=== PATIENT | female | born 1950 | race Caucasian/White ===

== ENCOUNTER 2023-01-24 08:32 | Day surgery (SDC) | payer MEDICARE, OTHER ==
[~2023-01-24] VITALS: Ht 167.6 cm; Wt 66.4 kg
[~2023-01-24 08:32] MED LIST: AMLO10TA PO; GUAI600T45 PO; MELA3TAB39 PO; ROSU20TA2 PO; SPIR50TA5 PO; ZOLP10TA PO
[2023-01-24 09:00] VITALS: BP 129/68; PULSE 88; RESP 14; TEMP 97.8; O2SAT 97
[2023-01-24] MEDS ORDERED: albumin 25% 100mL bottle x 1 IV PRN (09:05)
[2023-01-24 10:30] VITALS: BP 135/81; PULSE 92; RESP 14; O2SAT 96
[2023-01-24 10:45] VITALS: BP 134/68; PULSE 91; RESP 14; O2SAT 93
[2023-01-24 11:00] VITALS: BP 123/68; PULSE 81; RESP 14; O2SAT 94
[2023-01-24 11:05] VITALS: BP 128/68; PULSE 81; RESP 14; O2SAT 95
== END 2023-01-24 11:15 | disposition home or self-care (01) ==
LOC: SSTAY O 08:32
PROVIDERS: ATTEND Radiology Vascular & Interventional Radiology
DX: R18.8 Other ascites (principal); R14.0 Abdominal distension (gaseous); I10 Essential (primary) hypertension; I25.2 Old myocardial infarction; Z98.51 Tubal ligation status; Z98.890 Other specified postprocedural states; Z86.19 Personal history of other infectious and parasitic diseases; Z88.1 Allergy status to other antibiotic agents; Z79.899 Other long term (current) drug therapy
CPT/HCPCS: 49083; C1729; A6258; A6449

== ENCOUNTER 2023-02-04 08:24 | Day surgery (SDC) | payer MEDICARE, OTHER ==
[~2023-02-04] VITALS: Ht 167.6 cm; Wt 65.6 kg
[2023-02-04 08:50] VITALS: BP 150/94; PULSE 99; RESP 16; TEMP 97.6; O2SAT 97
== END 2023-02-04 09:55 | disposition home or self-care (01) ==
LOC: SSTAY O 08:24
PROVIDERS: ATTEND Radiology Vascular & Interventional Radiology
DX: J90 Pleural effusion, not elsewhere classified (principal); Z53.8 Procedure and treatment not carried out for other reasons; I10 Essential (primary) hypertension; E78.00 Pure hypercholesterolemia, unspecified; Z86.19 Personal history of other infectious and parasitic diseases; I25.2 Old myocardial infarction; C48.2 Malignant neoplasm of peritoneum, unspecified; Z86.73 Personal history of transient ischemic attack (TIA), and cerebral infarction without residual deficits; Z98.51 Tubal ligation status; Z98.890 Other specified postprocedural states; Z88.1 Allergy status to other antibiotic agents; Z79.899 Other long term (current) drug therapy
CPT/HCPCS: 32555; 76604; C1729